=== PATIENT | male | born 1940 | race Two or more races ===

== ENCOUNTER 2018-05-13 06:00 | Day surgery (SDC) | payer OTHER ==
[~2018-05-13 06:00] MED LIST: ADULT ASPIRIN81 MG; GLIPIZIDE ER10 MG; JANUMET XR 1001 EACH PO; LISINOPRIL20 MG; PROTONIX40 MG PO; SIMVASTATIN20 MG; VERAPAMIL ER120 MG PO
== END 2018-05-13 12:45 | disposition home or self-care (01) ==
LOC: CIR.AMB 06:00
DX: M65.842 Other synovitis and tenosynovitis, left hand (principal)

== ENCOUNTER 2019-03-04 08:41 | Outpatient (CLI) | payer OTHER | END 2019-03-04 08:43 | disposition home or self-care (01) | LOC: NUCLEAR 08:41 | DX: E11.51 Type 2 diabetes mellitus with diabetic peripheral angiopathy without gangrene (principal); I87.2 Venous insufficiency (chronic) (peripheral) ==

== ENCOUNTER 2019-03-08 08:58 | Outpatient (CLI) | payer OTHER | END 2019-03-08 09:01 | disposition home or self-care (01) | LOC: NUCLEAR 08:58 | DX: E11.51 Type 2 diabetes mellitus with diabetic peripheral angiopathy without gangrene (principal); I73.9 Peripheral vascular disease, unspecified ==

== ENCOUNTER 2019-10-20 05:30 | Day surgery (SDC) | payer OTHER ==
[~2019-10-20 05:30] MED LIST changes: +METFORMIN HCL500 MG PO
== END 2019-10-20 09:50 | disposition home or self-care (01) ==
LOC: CIR.AMB 05:30 → ADM 11:45
DX: M65.841 Other synovitis and tenosynovitis, right hand (principal)

== ENCOUNTER 2023-06-17 20:56 | Emergency (ER) | payer OTHER ==
[~2023-06-17] VITALS: Ht 165.1 cm; Wt 68.0 kg
[2023-06-17 23:23] LABS: HEMATOCRIT 30.4 % (39.0-48.0); HEMOGLOBIN 10.5 g/dL (13-16.00); MEAN CELL VOLUME 95.2 fL (80.0-100.00); MEAN CORPUSCULAR HEMOGLOBIN 32.9 pg (27.00-32.0); MEAN CORPUSCULAR HGB CONC 34.6 g/dl (32.0-36.0); PLATELET COUNT 156 K/uL (150-450); RED BLOOD COUNT 3.19 M/uL (4.00-6.00)
[2023-06-17 23:47] LABS: INR 1.01; PROTHROMBIN TIME 10.6 SECONDS (9.0-11.5)
[2023-06-18] MEDS ORDERED: PERCOGESIC EXT1 EACH PO (00:39)
== END 2023-06-18 01:01 | disposition home or self-care (01) ==
LOC: ER 20:56
PROVIDERS: General Practice
DX: S91.321A Laceration with foreign body, right foot, initial encounter (principal); W22.8XXA Striking against or struck by other objects, initial encounter; Y93.89 Activity, other specified; Y92.89 Other specified places as the place of occurrence of the external cause